=== PATIENT | male | born 2005 | race Caucasian/White ===

== ENCOUNTER 2025-01-20 17:48 | Emergency (ER) | payer SELFPAY ==
[2025-01-20] VITALS (15 sets, daily range): BP systolic 128–150; BP diastolic 59–106; PULSE 63–69; TEMP 36.6–36.8; O2SAT 99–100; BMI 19.5
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
[2025-01-20] MEDS: 0.9 % SODIUM CHLORIDE 1,000 ML 999 ML IV (20:13)
[2025-01-20 20:31] LABS: Hematocrit 46.8 % (42.0-54.0); Hemoglobin 16.8 g/dL (14.0-18.0); Immature Granulocytes Abs Auto 0.05 10^3/uL (0.00-0.03); Immature Granulocytes Pct Auto 0.4 % (0.0-0.5); Lymphocytes Absolute Auto 1.8 10^3/uL (1.2-3.8); Mean Corpuscular HGB Conc 35.9 g/dL (29.9-35.2); Mean Corpuscular Hemoglobin 30.9 pg (25.9-34.0); Mean Corpuscular Volume 86.2 fL (80.0-94.0); Platelet Count 275 10^3/uL (150-450); Red Blood Count 5.43 10^6/uL (4.70-6.10); White Blood Count 13.9 10^3/uL (4.0-11.0)
[2025-01-20 20:36] LABS: Glucose Urine UA NEGATIVE (NEGATIVE)
[2025-01-20 21:00] LABS: Cannabinoid Screen Urine POSITIVE (NEGATIVE)
[2025-01-20 21:01] LABS: Methamphetamines Screen Urine NEGATIVE (NEGATIVE); Tricyclic Antidepressant Urine NEGATIVE (NEGATIVE)
[2025-01-20 21:08] LABS: Cast Seen? NONE SEEN #/LPF (NONE SEEN); Crystals Seen? None Seen #/HPF (None Seen); Urine Culture Indicated NO
[2025-01-20 21:13] LABS: Lactate/Lactic Acid 1.1 mmol/L (0.4-2.0)
[2025-01-20 21:35] LABS: Alanine Aminotransferase 20 U/L (16-63); Albumin Globulin Ratio 1.4; Albumin Level 5.2 g/dL (3.4-5.0); Alkaline Phosphatase 59 U/L (46-116); Anion Gap 12.5; Aspartate Amino Transferase 12 U/L (15-37); Blood Urea Nitrogen 12.0 mg/dL (7.0-18.0); Calcium 9.7 mg/dL (8.5-10.1); Carbon Dioxide 28.0 mmol/L (21.0-32.0); Chloride 104 mmol/L (98-107); Estimated GFR (African America >60 (>=60 mL/min/1.73m^2); Estimated GFR (Non-African Ame >60 (>=60 mL/min/1.73m^2); Globulin 3.6 g/dL; Glucose 91 mg/dL (74-106); Potassium 3.5 mmol/L (3.5-5.1); Sodium 141 mmol/L (136-145); Total Protein 8.8 g/dL (6.4-8.2)
--- NOTE | 2025-01-20 22:38 | PC.NURSE ---
i gave this patient verbal and written discharge orders along of list of provide accepting new patients and this patient voices yes to understanding these. at time of discharge this patient voices no concerns, needs and shows no signs of distress
== END 2025-01-20 22:40 | disposition home or self-care (01) ==
PROVIDERS: Emergency Provider Internal Medicine
DX: F41.9 Anxiety disorder, unspecified (principal); R11.10 Vomiting, unspecified
CPT/HCPCS: 36415; 71046; 80053; 80307; 81001; 83605; 85025; 99285